=== PATIENT | female | born 1965 | race Caucasian/White ===

== ENCOUNTER 2020-07-08 14:40 | Observation (INO) | payer OTHER ==
[2020-07-08] MEDS ORDERED: NALOXONE 0.4 MG/ML 1 ML VIAL IVP STA ×2 (15:21→17:53)
[2020-07-08] MEDS ORDERED: SODIUM CHLORIDE 0.9% 1,000 ML IV STA (15:23)
[2020-07-08 15:49] LABS: Basophils % (A) 0 %; Eosinophils # (A) 0.5 k/uL (0-0.7); Eosinophils % (A) 8 %; HCT 44.2 % (34.0-46.0); HGB 14.7 gm/dL (11.4-16.0); Lymphocytes % (A) 15 %; MCH 32.1 pg (25.0-35.0); MCHC 33.3 g/dL (31.0-37.0); MCV 96.2 fL (80.0-100.0); Mean Platelet Volume 7.6; Monocytes # (A) 0.3 k/uL (0-1.0); Monocytes % (A) 5 %; Neutrophils # (A) 4.9 k/uL (1.3-7.7); Neutrophils % (A) 71 %; Platelet Count 246 k/uL (150-450); RBC 4.59 m/uL (3.80-5.40); RDW 12.6 % (11.5-15.5); WBC 6.9 k/uL (3.8-10.6)
[2020-07-08 15:49] LABS: Glucose,Whole Blood 87 mg/dL (75-99)
[2020-07-08 16:05] LABS: ALT 11 U/L (4-34); AST 22 U/L (14-36); Acetaminophen <10.0 ug/mL; African American GFR (CKD) >90 (>60 ml/min/1.73 sqM); Albumin 4.1 g/dL (3.5-5.0); Alkaline Phosphatase 85 U/L (38-126); Anion Gap 5 mmol/L; Blood Urea Nitrogen 14 mg/dL (7-17); Calcium 9.3 mg/dL (8.4-10.2); Carbon Dioxide 27 mmol/L (22-30); Chloride 106 mmol/L (98-107); Glucose 92 mg/dL (74-99); Non-African American GFR(CKD) 84 (>60 ml/min/1.73 sqM); Potassium 4.1 mmol/L (3.5-5.1); Salicylate <1.0 mg/dL; Sodium 138 mmol/L (137-145); Total Bilirubin 0.6 mg/dL (0.2-1.3); Total Protein 6.6 g/dL (6.3-8.2)
--- NOTE | 2020-07-08 16:24 | ED ---
Altered Mental Status HPI - General Chief Complaint: Altered Mental Status Stated Complaint: Overdose Time Seen by Provider: 07/08/20 15:15 Source: EMS Limitations: altered mental status - History of Present Illness Initial Comments: Patient is a 54-year-old female presenting to the emergency Department with complaints of feeling exhausted. Patient was sent from the [place] for altered mental status and lethargy. Patient states she simply extremity tired as she has not slept in a few days. She denies any drug use today or alcohol. She denies any pain anywhere. She denies any suicidal thoughts. She denies any falls or trauma. She denies chest pain or shortness of breath, cough, fever, chills, urinary complaints. She has no further complaints at this time. On arrival to the ER, her vital signs are stable. - Related Data Home Medications Medication Instructions Recorded Confirmed DULoxetine HCL [Cymbalta] 60 mg PO DAILY 07/08/20 07/08/20 SUMAtriptan succinate [Sumatriptan 100 mg PO DAILY PRN 07/08/20 07/08/20 Succinate] busPIRone HCl [Buspar] 5 mg PO BID 07/08/20 07/08/20 Allergies Allergy/AdvReac Type Severity Reaction Status Date / Time No Known Allergies Allergy Verified 07/08/20 18:30 Review of Systems ROS Statement: Those systems with pertinent positive or pertinent negative responses have been documented in the HPI. ROS Other: All systems not noted in ROS Statement are negative. Past Medical History Smoking Status: Current every day smoker Past Alcohol Use History: Abuse Past Drug Use History: Heroin, Methamphetamine General Exam - General Exam Comments Initial Comments: GENERAL: Patient is lethargic but will answer after using her name a few times. Patient is nontoxic and in no acute distress. HEAD: Atraumatic, normocephalic. EYES: Pupils equal round and reactive to light, extraocular movements intact, sclera anicteric, conjunctiva are normal. Eyelids were unremarkable. ENT: TMs normal, nares patent, oropharynx clear without exudates. Moist mucous membranes. NECK: Normal range of motion, supple without lymphadenopathy or JVD. LUNGS: Unlabored respirations. Breath sounds clear to auscultation bilaterally and equal. No wheezes rales or rhonchi. HEART: Regular rate and rhythm without murmurs, rubs or gallops. ABDOMEN: Soft, nontender, normoactive bowel sounds. No guarding, no rebound. No masses appreciated. : Deferred MUSCULOSKELETAL: Normal extremities with adequate strength and normal range of motion, no pitting or edema. No clubbing or cyanosis. NEUROLOGICAL: Patient is alert and oriented x 3. Motor and sensory are also intact. Cranial nerves II through XII grossly intact. Symmetrical smile. Normal speech, normal gait. PSYCH: Normal mood, normal affect. SKIN: Warm, Dry, normal turgor, no rashes or lesions noted. Limitations: altered mental status Course Vital Signs 07/08/20 07/08/20 07/08/20 14:48 15:30 15:34 Temperature 98.6 F Pulse Rate 82 70 Respiratory 14 18 12 Rate Blood Pressure 140/90 158/89 O2 Sat by Pulse 99 99 Oximetry 07/08/20 07/08/20 07/08/20 17:30 18:00 18:20 Temperature 98.2 F Pulse Rate 67 71 Respiratory 18 20 16 Rate Blood Pressure 138/89 141/81 O2 Sat by Pulse 99 99 Oximetry Medical Decision Making - Medical Decision Making Patient was sent to [place] for increased lethargy, altered mental status. She denies taking any drugs or alcohol today. She does admit to taking drugs last night. She states she simply tired. She denies any pain. Her exam is unremarkable. She has been sleeping in the room, will not get up to use the restroom or walk around. Her EKG shows no acute abnormalities. Patient's glucose was normal. Lab work is unremarkable, ammonia, Tylenol, alcohol,salicylates, are all normal. Patient was given 1 dose of Narcan without improvement in symptoms. Patient will not get up and walk, falls alseep while speaking. Patient will be admitted for lethargy. She was accepted by Dr. Redman. Case discussed with Dr. Krishna. - Lab Data Result diagrams: 07/08/20 15:39 07/08/20 15:39 Lab Results 07/08/20 07/08/20 07/08/20 Range/Units 15:39 15:39 15:39 WBC 6.9 (3.8-10.6) k/uL RBC 4.59 (3.80-5.40) m/uL Hgb 14.7 (11.4-16.0) gm/dL Hct 44.2 (34.0-46.0) % MCV 96.2 (80.0-100.0) fL MCH 32.1 (25.0-35.0) pg MCHC 33.3 (31.0-37.0) g/dL RDW 12.6 (11.5-15.5) % Plt Count 246 (150-450) k/uL Neutrophils % 71 % Lymphocytes % 15 % Monocytes % 5 % Eosinophils % 8 % Basophils % 0 % Neutrophils # 4.9 (1.3-7.7) k/uL Lymphocytes # 1.0 (1.0-4.8) k/uL Monocytes # 0.3 (0-1.0) k/uL Eosinophils # 0.5 (0-0.7) k/uL Basophils # 0.0 (0-0.2) k/uL Sodium 138 (137-145) mmol/L Potassium 4.1 (3.5-5.1) mmol/L Chloride 106 (98-107) mmol/L Carbon Dioxide 27 (22-30) mmol/L Anion Gap 5 mmol/L BUN 14 (7-17) mg/dL Creatinine 0.81 (0.52-1.04) mg/dL Est GFR (CKD-EPI)AfAm >90 (>60 ml/min/1.73 sqM) Est GFR (CKD-EPI)NonAf 84 (>60 ml/min/1.73 sqM) Glucose 92 (74-99) mg/dL POC Glucose (mg/dL) (75-99) mg/dL POC Glu Rehabilitation Inspector ID Plasma Lactic Acid David 1.2 (0.7-2.0) mmol/L Calcium 9.3 (8.4-10.2) mg/dL Total Bilirubin 0.6 (0.2-1.3) mg/dL AST 22 (14-36) U/L ALT 11 (4-34) U/L Alkaline Phosphatase 85 (38-126) U/L Ammonia (<30) umol/L Total Protein 6.6 (6.3-8.2) g/dL Albumin 4.1 (3.5-5.0) g/dL Salicylates <1.0 mg/dL Acetaminophen <10.0 ug/mL Serum Alcohol mg/dL 07/08/20 07/08/20 07/08/20 Range/Units 15:39 15:48 16:19 WBC (3.8-10.6) k/uL RBC (3.80-5.40) m/uL Hgb (11.4-16.0) gm/dL Hct (34.0-46.0) % MCV (80.0-100.0) fL MCH (25.0-35.0) pg MCHC (31.0-37.0) g/dL RDW (11.5-15.5) % Plt Count (150-450) k/uL Neutrophils % % Lymphocytes % % Monocytes % % Eosinophils % % Basophils % % Neutrophils # (1.3-7.7) k/uL Lymphocytes # (1.0-4.8) k/uL Monocytes # (0-1.0) k/uL Eosinophils # (0-0.7) k/uL Basophils # (0-0.2) k/uL Sodium (137-145) mmol/L Potassium (3.5-5.1) mmol/L Chloride (98-107) mmol/L Carbon Dioxide (22-30) mmol/L Anion Gap mmol/L BUN (7-17) mg/dL Creatinine (0.52-1.04) mg/dL Est GFR (CKD-EPI)AfAm (>60 ml/min/1.73 sqM) Est GFR (CKD-EPI)NonAf (>60 ml/min/1.73 sqM) Glucose (74-99) mg/dL POC Glucose (mg/dL) 87 (75-99) mg/dL POC Glu Rehabilitation Inspector ID Plasma Lactic Acid David (0.7-2.0) mmol/L Calcium (8.4-10.2) mg/dL Total Bilirubin (0.2-1.3) mg/dL AST (14-36) U/L ALT (4-34) U/L Alkaline Phosphatase (38-126) U/L Ammonia <9 (<30) umol/L Total Protein (6.3-8.2) g/dL Albumin (3.5-5.0) g/dL Salicylates mg/dL Acetaminophen ug/mL Serum Alcohol <10 mg/dL - EKG Data EKG Comments: Normal sinus rhythm, normal ECG, ventricular rate 69, MT interval 112, QT 410. Disposition Clinical Impression: Lethargic, Withdrawal from recreational drug Disposition: ADMITTED IP TO THIS [facility] Condition: Stable Decision Date: 07/08/20 Decision Time: 18:11
[2020-07-08] MEDS ORDERED: ACETAMINOPHEN TAB 325 MG TAB PO PRN (18:04)
[2020-07-08] MEDS ORDERED: ONDANSETRON 4 MG/2 ML VIAL IVP PRN (18:04)
[2020-07-08] MEDS ORDERED: NALOXONE 0.4 MG/ML 1 ML VIAL IV PRN (18:04)
[2020-07-08] MEDS ORDERED: SODIUM CHLORIDE 0.9% 1,000 ML IV SCH (18:15)
[2020-07-08 20:08] LABS: Appearance,Urine Clear (Clear); Bacteria,Urine Occasional /hpf; Bilirubin,Urine Negative (Negative); Blood,Urine Trace (Negative); Color,Urine Yellow; Glucose,Urine (UA) Negative (Negative); Ketones,Urine Negative (Negative); Leukocyte Esterase,Urine Small (Negative); Mucus,Urine Rare /hpf; Nitrite,Urine Positive (Negative); PH, Urine 5.5 (5.0-8.0); Protein,Urine Negative (Negative); RBC,Urine 1 /hpf (0-5); Specific Gravity,Urine 1.015 (1.001-1.035); Squamous Epithelial Cell,Urine 1 /hpf (0-4); Urobilinogen,Urine <2.0 mg/dL (<2.0); WBC,Urine 12 /hpf (0-5)
[2020-07-08 20:15] LABS: Amphetamine Screen,Urine Detected (NotDetected); Barbiturate Screen,Urine Not Detected (NotDetected); Benzodiazepines Screen,Urine Detected (NotDetected); Cocaine Screen,Urine Detected (NotDetected); Methadone Screen, Urine Not Detected (NotDetected); Opiate Screen,Urine Not Detected (NotDetected); Oxycodone Screen, Urine Not Detected (NotDetected); Phencyclidine Screen,Urine Not Detected (NotDetected); Tricyclic Antidepressant,Urine Not Detected (NotDetected); Urn Cannabinoid Scrn Not Detected (NotDetected)
[2020-07-08] MEDS ORDERED: LORazepam 2 MG/ML INJ IV PRN ×3 (21:03)
[2020-07-08] MEDS ORDERED: THIAMINE 100 MG/ML 2 ML VIAL IM STA (21:03)
--- NOTE | 2020-07-08 21:04 | P.HPIM ---
History of Present Illness H&P Date: 07/08/20 The patient is a 54-year-old female with a PMH of tobacco abuse, EtOH abuse, and polysubstance abuse (heroin, cocaine, methamphetamines) who was sent into the emergency room from [place] for lethargy and altered mentation. The patient was lethargic during the interview though was arousable and was answering questions appropriately. She reported smoking methamphetamine yesterday and drinking a fifth of rum daily for the past several years with her last drink also been yesterday. She reported that she has been feeling exhausted all day today but denied any active complaints. Reported a mild frontal headache though denied falls. Denied chest pain, shortness of breath, fever, chills, dysuria, nausea, vomiting, or abdominal pain. The patient kept on falling asleep during the interview and refused to answer any further questions. Urine toxicology was positive for methamphetamines and cocaine. Alcohol level was less than 10. Lactic acid was 1.2, AST 22, ALT 11, sodium 138, potassium 4.1, BUN 14, creatinine 0.81. Review of Systems Pertinent positives and negatives as discussed in HPI, a complete review of systems was performed and all other systems are negative. Past Medical History Additional Past Medical History / Comment(s): patient too lethargic to answer past medical history questions History of Any Multi-Drug Resistant Organisms: None Reported Smoking Status: Current every day smoker Past Alcohol Use History: Abuse Past Drug Use History: Heroin, Methamphetamine Medications and Allergies Home Medications Medication Instructions Recorded Confirmed Type DULoxetine HCL [Cymbalta] 60 mg PO DAILY 07/08/20 07/08/20 History SUMAtriptan succinate [Sumatriptan 100 mg PO DAILY PRN 07/08/20 07/08/20 History Succinate] busPIRone HCl [Buspar] 5 mg PO BID 07/08/20 07/08/20 History Allergies Allergy/AdvReac Type Severity Reaction Status Date / Time No Known Allergies Allergy Verified 07/08/20 18:30 Physical Exam Vitals: Vital Signs Temp Pulse Pulse Resp BP BP Pulse Ox 07/08/20 19:00 98.3 F 88 18 128/65 99 07/08/20 18:52 98.4 F 70 16 121/77 99 07/08/20 18:20 16 07/08/20 18:00 71 20 141/81 99 07/08/20 17:30 98.2 F 67 18 138/89 99 07/08/20 15:34 12 07/08/20 15:30 70 18 158/89 99 07/08/20 14:48 98.6 F 82 14 140/90 99 Intake and Output 07/08/20 07/08/20 07/08/20 06:59 14:59 22:59 Output Total 600 Balance -600 Output: Urine 600 Other: Weight 72.575 kg 72.575 kg General: non toxic, no distress, appears at stated age, normal weight Derm: no unusual rashes/lesions no unusual ecchymoses, warm, dry Head: atraumatic, normocephalic, symmetric Eyes: EOMI, no lid lag, anicteric sclera, pupils equal round reactive to light ENT: Nose and ears atraumatic, no thrush, no pharyngeal erythema Neck: No thyromegaly, no cervical lymphadenopathy, trachea midline, supple Mouth: no lip lesion, mucus membranes moist Cardiovascular: S1S2 reg, no murmur, positive posterior tibial pulse bilateral, no edema, capillary refill less than 2 seconds Lungs: CTA bilateral, no rhonchi, no rales , no accessory muscle use Abdominal: soft, nontender to palpation, no guarding, no appreciable organomegaly, normal bowel sounds Ext: no gross muscle atrophy, muscle strength 5 out of 5 in all 4 extremities grossly, no contractures, Neuro: Lethargic, CN II-XI grossly intact, light touch intact all 4 extremities, finger to nose within normal limits, Psych: Slow to respond but oriented to self, place, and year/month Results CBC & Chem 7: 07/08/20 15:39 07/08/20 15:39 Thrombosis Risk Factor Assmnt - Choose All That Apply Each Factor Represents 1 point: Age 41-60 years Thrombosis Risk Factor Assessment Total Risk Factor Score: 1 Thrombosis Risk Factor Assessment Level: Low Risk Assessment and Plan Plan: Lethargy, likely methamphetamine/cocaine withdrawal -Continue with neuro checks every hour -Fall precautions -Follow-up brain CT -Patient received 2 doses of Narcan in the emergency room with minimal improvement EtOH abuse -Monitor for signs of withdrawal -CIWA protocol -Fall, aspiration, seizure precautions -Thiamine, folate, multivitamins Tobacco abuse -Advised on the importance of cessation DVT prophylaxis -Heparin subq The patient is admitted with an anticipated less than 2 midnight stay for evaluation of lethargy CODE STATUS: Full Code Discussed with: Patient Anticipated discharge date: 07/[address]: [place] A total of 40 minutes was spent on the care of this complex patient more than 50% of the time was spent in counseling and care coordination.
[2020-07-08] MEDS: THIAMINE 100 MG TAB PO SCH (21:31)
--- NOTE | 2020-07-08 22:00 | CT ---
EXAMINATION: CT brain wo con DATE AND TIME: 07/08/2020 8:12 PM CLINICAL INDICATION: PHH; AMS TECHNIQUE: Standard departmental protocol.; 1217.4 mGy-cm. COMPARISON: None. FINDINGS: The calvarium is intact. There is no intracranial hemorrhage. There is no intracranial mass or mass effect. No definite new intra-axial or extra-axial attenuation defect. The paranasal sinuses, middle ear cavities, and mastoid sinus air cells are clear. The orbits are unremarkable. IMPRESSION: NO ACUTE PROCESS.
[2020-07-08] MEDS: HEPARIN SODIUM,PORCINE 5,000 UNIT/ML 1 ML VIAL SQ SCH (23:33)
[2020-07-09] MEDS: THIAMINE 100 MG TAB PO SCH (08:33)
[2020-07-09] MEDS: HEPARIN SODIUM,PORCINE 5,000 UNIT/ML 1 ML VIAL SQ SCH (08:33)
[2020-07-09] MEDS ORDERED: FOLIC ACID 1 MG TAB PO SCH (09:00)
[2020-07-09] MEDS ORDERED: MULTIVITAMINS, THERA 1 EACH TAB PO SCH (09:00)
[2020-07-09 09:31] VITALS: BP 158/85; PULSE 90; RESP 15; TEMP 98.4
--- NOTE | 2020-07-09 10:35 | P.DS ---
Providers Date of admission: 07/08/20 18:04 Expected date of discharge: 07/09/20 Attending physician: Berta Redman DO Primary care physician: Physician Nonstaff Hospital Course: The patient is a 54-year-old female with a PMH of tobacco abuse, EtOH abuse, and polysubstance abuse (heroin, cocaine, methamphetamines) who was sent into the emergency room from [place] for lethargy and altered mentation. She reported smoking methamphetamine yesterday and drinking a fifth of rum daily for the past several years with her last drink also been yesterday. Patient was evaluated in the ER and a computed tomography scan of the head sh owed no acute intracranial process. Most of her lab work was within acceptable range. She was placed on observation and treated aggressively with IV fluid hydration. She did not have any evidence of withdrawal. On the day of my evaluation, patient was awake and alert and her mentation was normal. She will be discharged in a stable condition. She will return to [place] for further management of her substance abuse. For further details about this hospitalization please refer to the electronic chart. Patient Condition at Discharge: Stable Plan - Discharge Summary Discharge Rx Participant: No New Discharge Prescriptions: No Action busPIRone HCl [Buspar] 5 mg PO BID SUMAtriptan succinate [Sumatriptan Succinate] 100 mg PO DAILY PRN PRN Reason: Migraine Headache DULoxetine HCL [Cymbalta] 60 mg PO DAILY Discharge Medication List DULoxetine HCL [Cymbalta] 60 mg PO DAILY 07/08/20 [History] SUMAtriptan succinate [Sumatriptan Succinate] 100 mg PO DAILY PRN 07/08/20 [History] busPIRone HCl [Buspar] 5 mg PO BID 07/08/20 [History] Follow up Appointment(s)/Referral(s): Nonstaff,Physician [Primary Care Provider] - 1-2 days
== END 2020-07-09 14:36 | disposition other institution (70) ==
LOC: EC 14:40 → 4SSUR 18:04
PROVIDERS: ADMIT Internal Medicine; ATTEND Internal Medicine
DX: R41.82 Altered mental status, unspecified (principal); R53.83 Other fatigue; F10.10 Alcohol abuse, uncomplicated; F14.10 Cocaine abuse, uncomplicated; F17.200 Nicotine dependence, unspecified, uncomplicated; Z79.899 Other long term (current) drug therapy
CPT/HCPCS: 96372 ×2; 96376; 96361; 96374; 99285; 36415; 93005; 80053; 82140; 83605; 85025; 81001; 80306; 83520; 80329; 80320; 87086; 87077; 87186; 70450; G0378 ×2; J1644; J2310; J3411

== ENCOUNTER 2020-09-07 09:53 | Emergency (ER) | payer OTHER ==
[2020-09-07] MEDS ORDERED: methylPREDNISolone SOD SUCCI 125 MG/2 ML VIAL IV STA (09:58)
[2020-09-07] MEDS ORDERED: SODIUM CHLORIDE 0.9% 1,000 ML IV STA ×2 (09:58→10:52)
[2020-09-07] MEDS ORDERED: IPRATROPIUM-ALBUTEROL 3 ML NEB INHALATION STA (09:58)
[2020-09-07 10:01] VITALS: RESP 19; TEMP 97.7
--- NOTE | 2020-09-07 10:02 | ED ---
SOB HPI - General Stated Complaint: SOB Time Seen by Provider: 09/07/20 09:53 Source: patient, EMS Mode of arrival: EMS - History of Present Illness Initial Comments: this is a 54-year-old female who states she just quit smoking several days ago who woke up this morning with some shortness of breath and a cough with phlegm production she states the thumb was somewhat black colored. She is having diffi culty clearing it. She complains of shortness of breath she was brought in from a outpatient clinic by EMS due to the shortness of breath he was also noted to be breathing 40 times a minute and suffering from numbness to her hands bilaterally present.she was satting at about 100%. She has had some slight rhinorrhea no other complaints and is fevers chills nausea vomiting sweats. MD Complaint: shortness of breath, cough - Related Data Home Medications Medication Instructions Recorded Confirmed DULoxetine HCL [Cymbalta] 60 mg PO DAILY 07/08/20 09/07/20 Albuterol Sulfate [Proair Hfa] 1 - 2 puff INHALATION RT-QID PRN 09/07/2009/07 Ergocalciferol (Vitamin D2) 50,000 unit PO MO 09/07/20 09/07/20 [Drisdol] Fluticasone/Salmeterol [Advair 1 puff INHALATION RT-BID 09/07/20 09/07/20 100-50 Diskus] Gabapentin [Neurontin] 300 mg PO TID 09/07/20 09/07/20 Montelukast Sodium [Singulair] 10 mg PO HS 09/07/20 09/07/20 Multivitamins, Thera [Multivitamin 1 tab PO DAILY 09/07/20 09/07/20 (formulary)] Naproxen 500 mg PO BID PRN 09/07/20 09/07/20 Varenicline [Chantix Continuing 1 mg PO DAILY 09/07/20 09/07/20 Pack] predniSONE [Deltasone] 40 mg PO DAILY 09/07/20 09/07/20 Allergies Allergy/AdvReac Type Severity Reaction Status Date / Time latex Allergy Anaphylaxis Verified 09/07/20 11:05 acetaminophen [From [place]] AdvReac Nausea & Verified 09/07/20 11:05 Vomiting & Diarrhea codeine AdvReac Nausea & Verified 09/07/20 11:05 [From Tylenol-Codeine #3] Vomiting & Diarrhea hydrocodone [From [place]] AdvReac Nausea & Verified 09/07/20 11:05 Vomiting & Diarrhea Review of Systems ROS Statement: Those systems with pertinent positive or pertinent negative responses have been documented in the HPI. ROS Other: All systems not noted in ROS Statement are negative. Past Medical History Past Medical History: Asthma, Seizure Disorder Additional Past Medical History / Comment(s): patient too lethargic to answer past medical history questions History of Any Multi-Drug Resistant Organisms: None Reported Smoking Status: Current every day smoker Past Alcohol Use History: Abuse Past Drug Use History: Heroin, Methamphetamine General Exam - General Exam Comments Initial Comments: this is a well-developed well-nourished asthenic appearing awake alert oriented 3 female General appearance: alert, anxious Head exam: Present: atraumatic, normocephalic, normal inspection Eye exam: Present: normal appearance, PERRL, EOMI. Absent: scleral icterus, conjunctival injection, periorbital swelling ENT exam: Present: normal exam, mucous membranes moist Neck exam: Present: normal inspection. Absent: tenderness, meningismus, lymphadenopathy Respiratory exam: Present: decreased breath sounds. Absent: respiratory distress, wheezes, rales, rhonchi, stridor Cardiovascular Exam: Present: regular rate, normal rhythm, normal heart sounds. Absent: systolic murmur, diastolic murmur, rubs, gallop, clicks GI/Abdominal exam: Present: soft, normal bowel sounds. Absent: distended, tenderness, guarding, rebound, rigid Extremities exam: Present: normal inspection, full ROM, normal capillary refill. Absent: tenderness, pedal edema, joint swelling, calf tenderness Back exam: Present: normal inspection Neurological exam: Present: alert, oriented X3, CN II-XII intact Psychiatric exam: Present: normal affect, normal mood Skin exam: Present: warm, dry, intact, normal color. Absent: rash Course Vital Signs 09/07/20 09/07/20 09/07/20 09:54 10:29 10:39 Temperature 97.7 F Pulse Rate 77 79 76 Respiratory 19 Rate Blood Pressure 115/78 O2 Sat by Pulse 99 Oximetry Medical Decision Making - Medical Decision Making reevaluation patient finds that she feels much improved. Symptoms the presentation is consistent with an acute bronchospasm as well as dehydration. Patient is encouraged to continue his her smoking cessation increase oral fluids she does have an inhaler as well as oral steroids that she is on right now she is resume his medication as directed follow-up with her doctor return when necessary - Lab Data Result diagrams: 09/07/20 10:09 09/07/20 10:09 Lab Results 09/07/20 09/07/20 09/07/20 Range/Units 10:09 10:09 10:09 WBC 9.0 (3.8-10.6) k/uL RBC 4.44 (3.80-5.40) m/uL Hgb 14.1 (11.4-16.0) gm/dL Hct 43.2 (34.0-46.0) % MCV 97.1 (80.0-100.0) fL MCH 31.7 (25.0-35.0) pg MCHC 32.7 (31.0-37.0) g/dL RDW 12.1 (11.5-15.5) % Plt Count 412 (150-450) k/uL Neutrophils % 65 % Lymphocytes % 23 % Monocytes % 5 % Eosinophils % 4 % Basophils % 1 % Neutrophils # 5.9 (1.3-7.7) k/uL Lymphocytes # 2.1 (1.0-4.8) k/uL Monocytes # 0.4 (0-1.0) k/uL Eosinophils # 0.4 (0-0.7) k/uL Basophils # 0.1 (0-0.2) k/uL PT 10.4 (9.0-12.0) sec INR 1.0 (<1.2) APTT 23.4 (22.0-30.0) sec Sodium 139 (137-145) mmol/L Potassium 4.3 (3.5-5.1) mmol/L Chloride 107 (98-107) mmol/L Carbon Dioxide 26 (22-30) mmol/L Anion Gap 6 mmol/L BUN 27 H (7-17) mg/dL Creatinine 0.74 (0.52-1.04) mg/dL Est GFR (CKD-EPI)AfAm >90 (>60 ml/min/1.73 sqM) Est GFR (CKD-EPI)NonAf >90 (>60 ml/min/1.73 sqM) Glucose 99 (74-99) mg/dL Plasma Lactic Acid David (0.7-2.0) mmol/L Calcium 9.4 (8.4-10.2) mg/dL Magnesium 1.9 (1.6-2.3) mg/dL Total Bilirubin 0.6 (0.2-1.3) mg/dL AST 26 (14-36) U/L ALT 19 (4-34) U/L Alkaline Phosphatase 60 (38-126) U/L Creatine Kinase 159 H (30-135) U/L Troponin I (0.000-0.034) ng/mL NT-Pro-B Natriuret Pep pg/mL Total Protein 7.1 (6.3-8.2) g/dL Albumin 4.3 (3.5-5.0) g/dL 09/07/20 09/07/20 09/07/20 Range/Units 10:09 10:09 10:09 WBC (3.8-10.6) k/uL RBC (3.80-5.40) m/uL Hgb (11.4-16.0) gm/dL Hct (34.0-46.0) % MCV (80.0-100.0) fL MCH (25.0-35.0) pg MCHC (31.0-37.0) g/dL RDW (11.5-15.5) % Plt Count (150-450) k/uL Neutrophils % % Lymphocytes % % Monocytes % % Eosinophils % % Basophils % % Neutrophils # (1.3-7.7) k/uL Lymphocytes # (1.0-4.8) k/uL Monocytes # (0-1.0) k/uL Eosinophils # (0-0.7) k/uL Basophils # (0-0.2) k/uL PT (9.0-12.0) sec INR (<1.2) APTT (22.0-30.0) sec Sodium (137-145) mmol/L Potassium (3.5-5.1) mmol/L Chloride (98-107) mmol/L Carbon Dioxide (22-30) mmol/L Anion Gap mmol/L BUN (7-17) mg/dL Creatinine (0.52-1.04) mg/dL Est GFR (CKD-EPI)AfAm (>60 ml/min/1.73 sqM) Est GFR (CKD-EPI)NonAf (>60 ml/min/1.73 sqM) Glucose (74-99) mg/dL Plasma Lactic Acid David 2.3 H* (0.7-2.0) mmol/L Calcium (8.4-10.2) mg/dL Magnesium (1.6-2.3) mg/dL Total Bilirubin (0.2-1.3) mg/dL AST (14-36) U/L ALT (4-34) U/L Alkaline Phosphatase (38-126) U/L Creatine Kinase (30-135) U/L Troponin I <0.012 (0.000-0.034) ng/mL NT-Pro-B Natriuret Pep 36 pg/mL Total Protein (6.3-8.2) g/dL Albumin (3.5-5.0) g/dL - EKG Data -: EKG Interpreted by Me EKG shows normal: sinus rhythm, axis, intervals, QRS complexes, ST-T waves Rate: normal EKG Comments: Normal sinus rhythm a 77 appear interval 124 QRS duration 78 daily since QTC 410/463 this is a normal-appearing EKG. - Radiology Data Radiology results: report reviewed (I did review the imaging and report no acute findings.), image reviewed Disposition Clinical Impression: Acute bronchospasm, Dehydration Disposition: HOME SELF-CARE Condition: Good Instructions (If sedation given, give patient instructions): Bronchospasm (ED), Dehydration (ED) Is patient prescribed a controlled substance at d/c from ED?: No Referrals: Beti Mc MD [Primary Care Provider] - 1-2 days
[2020-09-07 10:23] LABS: Basophils # (A) 0.1 k/uL (0-0.2); Basophils % (A) 1 %; Eosinophils # (A) 0.4 k/uL (0-0.7); Eosinophils % (A) 4 %; HCT 43.2 % (34.0-46.0); HGB 14.1 gm/dL (11.4-16.0); Lymphocytes # (A) 2.1 k/uL (1.0-4.8); Lymphocytes % (A) 23 %; MCH 31.7 pg (25.0-35.0); MCHC 32.7 g/dL (31.0-37.0); MCV 97.1 fL (80.0-100.0); Mean Platelet Volume 6.6; Monocytes # (A) 0.4 k/uL (0-1.0); Monocytes % (A) 5 %; Neutrophils # (A) 5.9 k/uL (1.3-7.7); Neutrophils % (A) 65 %; Platelet Count 412 k/uL (150-450); RBC 4.44 m/uL (3.80-5.40); RDW 12.1 % (11.5-15.5)
[2020-09-07 10:33] LABS: ALT 19 U/L (4-34); AST 26 U/L (14-36); African American GFR (CKD) >90 (>60 ml/min/1.73 sqM); Albumin 4.3 g/dL (3.5-5.0); Alkaline Phosphatase 60 U/L (38-126); Anion Gap 6 mmol/L; Blood Urea Nitrogen 27 mg/dL (7-17); Calcium 9.4 mg/dL (8.4-10.2); Carbon Dioxide 26 mmol/L (22-30); Chloride 107 mmol/L (98-107); Creatine Kinase 159 U/L (30-135); Glucose 99 mg/dL (74-99); Magnesium 1.9 mg/dL (1.6-2.3); Non-African American GFR(CKD) >90 (>60 ml/min/1.73 sqM); Potassium 4.3 mmol/L (3.5-5.1); Sodium 139 mmol/L (137-145); Total Bilirubin 0.6 mg/dL (0.2-1.3); Total Protein 7.1 g/dL (6.3-8.2)
[2020-09-07 10:34] LABS: Partial Thromboplastin Time 23.4 sec (22.0-30.0); Prothrombin Time 10.4 sec (9.0-12.0)
--- NOTE | 2020-09-07 11:19 | XR ---
EXAMINATION TYPE: XR chest 2V DATE OF EXAM: 09/07/2020 COMPARISON: NONE HISTORY: History of asthma with difficulty in breathing. TECHNIQUE: Frontal and lateral views of the chest are obtained. FINDINGS: There is mild chronic parenchymal change without suspicious focal air space opacity, pleur al effusion, or pneumothorax seen. The cardiac silhouette size is within normal limits. Overlying E KG leads. The osseous structures are intact. IMPRESSION: No acute cardiopulmonary process.
[2020-09-07 12:23] VITALS: BP 105/70; PULSE 89
== END 2020-09-07 12:23 | disposition home or self-care (01) ==
LOC: EC 09:53
DX: J98.01 Acute bronchospasm (principal); E86.0 Dehydration; R20.0 Anesthesia of skin; F17.200 Nicotine dependence, unspecified, uncomplicated; M19.90 Unspecified osteoarthritis, unspecified site; Z79.51 Long term (current) use of inhaled steroids; Z79.899 Other long term (current) drug therapy; Z91.040 Latex allergy status; Z88.5 Allergy status to narcotic agent; Z88.6 Allergy status to analgesic agent; Z87.09 Personal history of other diseases of the respiratory system
CPT/HCPCS: 36415; 94640; 93005; 83880; 80053; 82550; 83605; 83735; 84484; 85025; 85610; 85730; 71046; 99285; 96374; 96361 ×2; J2930

== ENCOUNTER 2020-11-25 09:36 | Day surgery (SDC) | payer OTHER ==
[2020-11-22 15:46] VITALS: BMI 23.1
[~2020-11-25 09:36] MED LIST: LACTATED RINGERS 1,000 ML IV SCH; LIDOCAINE 1% (10MG/ML) FOR IV START INTRADERMA PRN
[2020-11-25 10:15] VITALS: TEMP 98.4
[2020-11-25] MEDS ORDERED: PROPOFOL 10 MG/ML 20 ML VIAL IV ONE (11:08)
[2020-11-25] MEDS ORDERED: LIDOCAINE 1% INJ 10MG/ML (20 ML MDV) ONE (11:08)
--- NOTE | 2020-11-25 11:11 | P.GSHP ---
History of Present Illness H&P Date: 11/25/20 Chief Complaint: Family history colonic Cancer This 55-year-old female been safe for colonoscopy. Patient previous history of colon polyps. She also has a strong family history of colon cancer. Her last colonoscopy was 7 years ago. 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 Smoking Status: Former smoker - Past Family History Mother Additional Family Medical History / Comment(s): colon polyps-precancerous Medications and Allergies Home Medications Medication Instructions Recorded Confirmed Type DULoxetine HCL [Cymbalta] 60 mg PO QAM 07/08/20 11/22/20 History Albuterol Sulfate [Proair Hfa] 1 - 2 puff INHALATION RT-QID PRN 09/07/20 11/22/20 History Fluticasone/Salmeterol [Advair 1 puff INHALATION RT-BID 09/07/20 11/22/20 History 100-50 Diskus] Gabapentin [Neurontin] 300 mg PO TID 09/07/20 11/25/20 History Montelukast Sodium [Singulair] 10 mg PO HS 09/07/20 11/22/20 History Naproxen 500 mg PO BID PRN 09/07/20 11/22/20 History Varenicline [Chantix Continuing 1 mg PO Q2D 09/07/20 11/22/20 History Pack] Antibiotic For Uti 1 dose PO BID 11/22/20 11/22/20 History Ergocalciferol [Vitamin D2] 50,000 unit PO Q7D 11/22/20 11/22/20 History Vivitrol 1 dose IM Q30D 11/22/20 11/22/20 History Allergies Allergy/AdvReac Type Severity Reaction Status Date / Time latex Allergy Anaphylaxis Verified 11/25/20 10:03 codeine AdvReac Nausea & Verified 11/25/20 10:03 [From Tylenol-Codeine #3] Vomiting & Diarrhea hydrocodone [From [place]] AdvReac Nausea & Verified 11/25/20 10:03 Vomiting & Diarrhea Surgical - Exam Vital Signs Temp Pulse Resp BP Pulse Ox 98.4 F 71 16 124/79 97 11/25/20 10:11 11/25/20 10:11 11/25/20 10:11 11/25/20 10:11 11/25/20 10:11 - General well developed, well nourished, no distress - Eyes PERRL - ENT normal pinna - Neck no masses - Respiratory normal expansion - Cardiovascular Rhythm: regular - Abdomen Abdomen: soft, non tender Assessment and Plan Assessment: Family History of colon cancer. History of colonic polyps. Perform colonoscopy
--- NOTE | 2020-11-25 11:38 | P.OP ---
Date of Procedure: 11/25/20 Preoperative Diagnosis: History of colon polyps Family history colonic Cancer Postoperative Diagnosis: Sigmoid colon polyp Procedure(s) Performed: Colonoscopy Anesthesia: MAC Surgeon: Claudio Artis Pathology: other (Sigmoid colon) Condition: stable Disposition: PACU Description of Procedure: The patient's placed on the endoscopy table in the lateral position. She received IV sedation. Digital rectal exam was performed which revealed no abnormalities. Flexible colonoscope was then placed patient anus passed rotator colon. The ileocecal valve was excised. The cecum, ascending and transverse colon. No. The descending colon. In the sigmoid colon there was a small sessile polyp removed with cold forcep. Scope was brought back the rectum this appeared normal. Scope withdrawn for patient.
[2020-11-25 12:06] VITALS: BP 110/78; PULSE 78; RESP 18
== END 2020-11-25 12:12 | disposition home or self-care (01) ==
LOC: ORWHC2ENDO 09:36
PROVIDERS: ATTEND Surgery
DX: Z12.11 Encounter for screening for malignant neoplasm of colon (principal); K63.5 Polyp of colon; Z86.010 Personal history of colon polyps; Z80.0 Family history of malignant neoplasm of digestive organs; G40.909 Epilepsy, unspecified, not intractable, without status epilepticus; J45.909 Unspecified asthma, uncomplicated; Z90.89 Acquired absence of other organs; Z87.891 Personal history of nicotine dependence; Z79.51 Long term (current) use of inhaled steroids; Z79.899 Other long term (current) drug therapy; Z91.040 Latex allergy status; Z88.5 Allergy status to narcotic agent
CPT/HCPCS: 88305; 45380; J2001; J2704

== ENCOUNTER 2020-11-26 11:32 | Emergency (ER) | payer OTHER ==
[2020-11-26 11:48] VITALS: BP 130/80; PULSE 92; RESP 20; TEMP 98.3
--- NOTE | 2020-11-26 11:49 | ED ---
Skin/Abscess/FB HPI - General Chief complaint: Skin/Abscess/Foreign Body Stated complaint: metal in finger/possible infection Time Seen by Provider: 11/26/20 11:48 Source: patient Mode of arrival: ambulatory Limitations: no limitations - History of Present Illness Initial comments: 55-year-old female presenting to the emergency department with chief complaint of a metal stuck in the finger. Patient states she was pumping her car tire when a small piece of metallic material went into her hand that was coming from the air pump. Patient states she's had no issues with that until about 2 days ago when she began to develop some redness and swelling to the left fourth digit. Patient states that she did remove the metallic material, however a small PEs might have broken off inside. Tetanus is not up-to-date. She denies any fevers or chills - Related Data Home Medications Medication Instructions Recorded Confirmed DULoxetine HCL [Cymbalta] 60 mg PO QAM 07/08/20 11/22/20 Albuterol Sulfate [Proair Hfa] 1 - 2 puff INHALATION RT-QID PRN 09/07/20 11/22/20 Fluticasone/Salmeterol [Advair 1 puff INHALATION RT-BID 09/07/20 11/22/20 100-50 Diskus] Gabapentin [Neurontin] 300 mg PO TID 09/07/20 11/25/20 Montelukast Sodium [Singulair] 10 mg PO HS 09/07/20 11/22/20 Naproxen 500 mg PO BID PRN 09/07/20 11/22/20 Varenicline [Chantix Continuing 1 mg PO Q2D 09/07/20 11/22/20 Pack] Antibiotic For Uti 1 dose PO BID 11/22/20 11/22/20 Ergocalciferol [Vitamin D2] 50,000 unit PO Q7D 11/22/20 11/22/20 Vivitrol 1 dose IM Q30D 11/22/20 11/22/20 Previous Rx's Medication Instructions Recorded Cephalexin [Keflex] 500 mg PO Q6HR #40 cap 11/26/20 Fluconazole [Diflucan] 150 mg PO ONCE #2 tab 11/26/20 Allergies Allergy/AdvReac Type Severity Reaction Status Date / Time latex Allergy Anaphylaxis Verified 11/26/20 11:48 codeine AdvReac Nausea & Verified 11/26/20 11:48 [From Tylenol-Codeine #3] Vomiting & Diarrhea hydrocodone [From [place]] AdvReac Nausea & Verified 11/26/20 11:48 Vomiting & Diarrhea Review of Systems ROS Statement: Those systems with pertinent positive or pertinent negative responses have been documented in the HPI. ROS Other: All systems not noted in ROS Statement are negative. 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, seizures with alcohol withdrawal-tx with ativan June [id number] alcohol since June 2020,hx colon polyps,hypoglycemia,low vitamin d History of Any Multi-Drug Resistant Organisms: None Reported Past Surgical History: Adenoidectomy, Tonsillectomy Past Anesthesia/Blood Transfusion Reactions: Family History of Problems w/ Anesthesia Additional Past Anesthesia/Blood Transfusion Reaction / Comment(s): dtr has trac hea malacia and PONV Past Psychological History: No Psychological Hx Reported Smoking Status: Former smoker Past Alcohol Use History: None Reported Past Drug Use History: None Reported - Past Family History Mother Additional Family Medical History / Comment(s): colon polyps-precancerous General Exam Limitations: no limitations General appearance: alert, in no apparent distress Head exam: Present: atraumatic, normocephalic, normal inspection Eye exam: Present: normal appearance, PERRL, EOMI Pupils: Present: normal accommodation ENT exam: Present: normal exam, normal oropharynx, mucous membranes moist Neck exam: Present: normal inspection, full ROM Respiratory exam: Present: normal lung sounds bilaterally. Absent: respiratory distress, wheezes, rales Cardiovascular Exam: Present: regular rate, normal rhythm, normal heart sounds Extremities exam: Present: full ROM, tenderness, normal capillary refill, other (+2 ulnar and radial pulses bilaterally.). Absent: normal inspection (Swelling, erythema noted on the middle phalange of the left fourth digit.), pedal edema, joint swelling, calf tenderness Back exam: Present: normal inspection, full ROM. Absent: tenderness, CVA tenderness (R), CVA tenderness (L) Neurological exam: Present: alert, oriented X3, normal gait Psychiatric exam: Present: normal affect, normal mood Skin exam: Present: warm, dry, intact, normal color Course Vital Signs 11/26/20 11:45 Temperature 98.3 F Pulse Rate 92 Respiratory 20 Rate Blood Pressure 130/80 O2 Sat by Pulse 98 Oximetry Medical Decision Making - Medical Decision Making 55-year-old male presenting to the emergency department with the chief complaint of a finger injury. On physical examination, patient has tenderness to the middle phalanges of the left fourth digit. There is also mild erythema and swelling to the region. X-ray reveals no retained metallic foreign body. There is a vague 1.5 cm density in the left dorsal soft tissues beyond the knuckles. This does not correlate clinically. Likely an artifact. This is not the area of interest. She'll be started on Keflex. Tetanus was updated. Return parameters discussed. Tylenol or Motrin for pain. Case discussed with physician. Disposition Clinical Impression: Finger infection Disposition: HOME SELF-CARE Condition: Stable Instructions (If sedation given, give patient instructions): Cellulitis (DC) Additional Instructions: Take prescribed medication as directed. Follow-up with a primary care physician. Return to emergency department if symptoms worsen. Prescriptions: Fluconazole [Diflucan] 150 mg PO ONCE #2 tab Cephalexin [Keflex] 500 mg PO Q6HR #40 cap Is patient prescribed a controlled substance at d/c from ED?: No Referrals: Beti Mc MD [Primary Care Provider] - 1-2 days Time of Disposition: 12:49
[2020-11-26] MEDS ORDERED: DIPH,PERTUS(ACELL)TETVAC-LF 0.5 ML VIAL IM ONE (12:12)
--- NOTE | 2020-11-26 12:20 | XR ---
EXAMINATION TYPE: XR finger LT, 3 views Ring finger DATE OF EXAM: 11/26/2020 Comparison: None Clinical History: 55-year-old female with pain, 4th digit. Suspected metal foreign body Findings: Images: Down onto the fourth digit show nuclear fracture, subluxation, dislocation. No retained metal lic metal density is seen. There is a vague 1.5 mm density dorsally and proximally only on the latera l view that could represent artifact. Impression: No acute osseous abnormality seen. No retained metallic foreign body. There is a vague 1.5 cm density in the dorsal soft tissues just beyond the knuckles only seen on the lateral view that could represe nt artifact. Correlate as to if this corresponds to the area of concern.
[2020-11-26] MEDS ORDERED: SULFAMETHOX-TMP 800-160MG 1 EACH TAB PO STA (12:43)
[2020-11-26] MEDS ORDERED: CEPHALEXIN 500 MG CAP PO STA (12:49)
== END 2020-11-26 12:55 | disposition home or self-care (01) ==
LOC: EC 11:32
DX: L08.9 Local infection of the skin and subcutaneous tissue, unspecified (principal); J45.909 Unspecified asthma, uncomplicated; G40.909 Epilepsy, unspecified, not intractable, without status epilepticus; Z79.51 Long term (current) use of inhaled steroids; Z23 Encounter for immunization; Z79.899 Other long term (current) drug therapy; Z88.5 Allergy status to narcotic agent; Z91.040 Latex allergy status; Z87.891 Personal history of nicotine dependence; Z90.49 Acquired absence of other specified parts of digestive tract; W45.8XXA Other foreign body or object entering through skin, initial encounter; Y93.89 Activity, other specified
CPT/HCPCS: 90471; 90715; 99283

== ENCOUNTER 2020-11-28 07:23 | Emergency (ER) | payer OTHER ==
[2020-11-28] MEDS ORDERED: LIDOCAINE 1% INJ 10MG/ML (20 ML MDV) SQ ONE (07:40)
[2020-11-28] MEDS ORDERED: HYDROmorphone 0.5 MG/0.5 ML SYRINGE IVP STA (07:41)
[2020-11-28] MEDS ORDERED: SODIUM CHLORIDE 0.9% 1,000 ML IV ONE ×2 (07:41→08:23)
[2020-11-28 07:58] LABS: Basophils # (A) 0.1 k/uL (0-0.2); Basophils % (A) 2 %; Eosinophils # (A) 0.4 k/uL (0-0.7); Eosinophils % (A) 8 %; HCT 37.1 % (34.0-46.0); HGB 12.7 gm/dL (11.4-16.0); Lymphocytes # (A) 0.9 k/uL (1.0-4.8); Lymphocytes % (A) 17 %; MCH 31.2 pg (25.0-35.0); MCHC 34.2 g/dL (31.0-37.0); MCV 91.4 fL (80.0-100.0); Mean Platelet Volume 6.8; Monocytes # (A) 0.3 k/uL (0-1.0); Monocytes % (A) 6 %; Neutrophils # (A) 3.5 k/uL (1.3-7.7); Neutrophils % (A) 66 %; Platelet Count 277 k/uL (150-450); RBC 4.05 m/uL (3.80-5.40); RDW 12.3 % (11.5-15.5); WBC 5.3 k/uL (3.8-10.6)
[2020-11-28 08:09] LABS: ALT 14 U/L (4-34); AST 17 U/L (14-36); African American GFR (CKD) >90 (>60 ml/min/1.73 sqM); Alkaline Phosphatase 62 U/L (38-126); Anion Gap 9 mmol/L; Blood Urea Nitrogen 21 mg/dL (7-17); Calcium 8.8 mg/dL (8.4-10.2); Carbon Dioxide 26 mmol/L (22-30); Chloride 105 mmol/L (98-107); Glucose 192 mg/dL (74-99); Non-African American GFR(CKD) >90 (>60 ml/min/1.73 sqM); Potassium 3.9 mmol/L (3.5-5.1); Sodium 140 mmol/L (137-145); Total Bilirubin 0.5 mg/dL (0.2-1.3); Total Protein 6.7 g/dL (6.3-8.2)
[2020-11-28] MEDS ORDERED: SODIUM CHLORIDE 0.9% 500 ML 500 ML IV ONE (08:23)
[2020-11-28] MEDS ORDERED: PIPERACILLIN-TAZOBACTAM 3.375 GM in SODIUM CHLORIDE 0.9% 100 ML IVPB STA (08:23)
[2020-11-28] MEDS ORDERED: CLINDAMYCIN 900 MG in DEXTROSE 5% IN WATER 50 ML IVPB STA ×2 (08:28)
--- NOTE | 2020-11-28 08:39 | ED ---
Skin/Abscess/FB HPI - General Chief complaint: Skin/Abscess/Foreign Body Stated complaint: Revisit - Hand Injury Time Seen by Provider: 11/28/20 07:33 Source: patient Mode of arrival: ambulatory Limitations: no limitations - History of Present Illness Initial comments: 55yo female presenting for cc of left 4th finger presenting for cc of worsenign infection. pt states that she was diagnosed two days ago with a finger infection and was placed on keflex. she states it all started about a week ago when she thought she had gotten a piece of metal in it. the images taken 2 days prior revealed no foreign body. pt states that the redness now streaks to her wrist. patient states she had a fever this AM, she states she called pcp and was told to come to the ER. patient has no additional complaints, she appears well nontoxic in no acute distress. - Related Data Home Medications Medication Instructions Recorded Confirmed DULoxetine HCL [Cymbalta] 60 mg PO DAILY 07/08/20 11/28/20 Albuterol Sulfate [Proair Hfa] 2 puff INHALATION RT-Q6H PRN 09/07/20 11/28/20 Fluticasone/Salmeterol [Advair 2 puff INHALATION RT-BID 09/07/20 11/28/20 100-50 Diskus] Gabapentin [Neurontin] 300 mg PO TID 09/07/20 11/28/20 Montelukast Sodium [Singulair] 10 mg PO HS 09/07/20 11/28/20 Naproxen 500 mg PO BID PRN 09/07/20 11/28/20 Ergocalciferol [Vitamin D2] 50,000 unit PO FR 11/22/20 11/28/20 Acetaminophen Tab [Tylenol Tab] 1,000 mg PO BID PRN 11/28/20 11/28/20 Aspirin EC [Ecotrin Low Dose] 81 mg PO DAILY 11/28/20 11/28/20 Cephalexin [Keflex] 500 mg PO QID 11/28/20 11/28/20 Previous Rx's Medication Instructions Recorded Sulfamethox-Tmp 800-160Mg [Bactrim 1 tab PO Q12HR 10 Days #20 tab 11/28/20 DS 800-160 mg] Allergies Allergy/AdvReac Type Severity Reaction Status Date / Time latex Allergy Anaphylaxis Verified 11/28/20 08:39 codeine AdvReac Nausea & Verified 11/28/20 08:39 [From Tylenol-Codeine #3] Vomiting & Diarrhea hydrocodone [From [place]] AdvReac Nausea & Verified 11/28/20 08:39 Vomiting & Diarrhea Review of Systems ROS Statement: Those systems with pertinent positive or pertinent negative responses have been documented in the HPI. ROS Other: All systems not noted in ROS Statement are negative. 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, seizures with alcohol withdrawal-tx with ativan June [id number] alcohol since June 2020,hx colon polyps,hypoglycemia,low vitamin d History of Any Multi-Drug Resistant Organisms: None Reported Past Surgical History: Adenoidectomy, Tonsillectomy Past Anesthesia/Blood Transfusion Reactions: Family History of Problems w/ Anesthesia Additional Past Anesthesia/Blood Transfusion Reaction / Comment(s): dtr has tra neva malacia and PONV Past Psychological History: No Psychological Hx Reported Smoking Status: Former smoker Past Alcohol Use History: None Reported Past Drug Use History: None Reported - Past Family History Mother Additional Family Medical History / Comment(s): colon polyps-precancerous General Exam - General Exam Comments Initial Comments: General: The patient is awake and alert, in no distress, and does not appear acutely ill. Eye: Pupils are equal, round and reactive to light, extra-ocular movements are intact. No nystagmus. There is normal conjunctiva bilaterally. No signs of icterus. Cardiovascular: There is a regular rate and rhythm. No murmur, rub or gallop is appreciated. Respiratory: Lungs are clear to auscultation, respirations are non-labored, breath sounds are equal. No wheezes, stridor, rales, or rhonchi. Musculoskeletal: Normal ROM, the MCP PIP and DIP joints of the left hand digits, no limitations of effected digit. Strength 5/5. Sensation intact. Radial pulses equal bilaterally 2+. Neurological: A&O x 3. CN II-XII intact grossly, There are no obvious motor or sensory deficits. Coordination appears grossly intact. Speech is normal. Skin: Skin is warm and dry and no rashes. round 1x 1.5cm raised area of fluctuation on flexor aspect distal to PIP joint. no fusiform swelling. Psychiatric: Cooperative, appropriate mood & affect, normal judgment. Limitations: no limitations Course Vital Signs 11/28/20 11/28/20 11/28/20 07:31 08:33 09:00 Temperature 98.6 F Pulse Rate 91 Respiratory 16 18 18 Rate Blood Pressure 105/70 O2 Sat by Pulse 97 Oximetry 11/28/20 10:00 Temperature 98.3 F Pulse Rate 72 Respiratory 18 Rate Blood Pressure 116/76 O2 Sat by Pulse 99 Oximetry Medical Decision Making - Medical Decision Making 55yo presenting for possible worsening finger infectio. xr reviewed from previous day, no foreign body. abscess drainaged after written consent. culture pending. patient given 2 doses of IV abx as well as IVF. patient evlauated by attending and at this time we feel patient is stable for discharge with MRSA added coverage to current abx regime. pt is agreeable to care plan and discharged appearing well. - Lab Data Result diagrams: 11/28/20 07:54 11/28/20 07:54 Lab Results 11/28/20 11/28/20 11/28/20 Range/Units 07:54 07:54 07:54 WBC 5.3 (3.8-10.6) k/uL RBC 4.05 (3.80-5.40) m/uL Hgb 12.7 (11.4-16.0) gm/dL Hct 37.1 (34.0-46.0) % MCV 91.4 (80.0-100.0) fL MCH 31.2 (25.0-35.0) pg MCHC 34.2 (31.0-37.0) g/dL RDW 12.3 (11.5-15.5) % Plt Count 277 (150-450) k/uL MPV 6.8 Neutrophils % 66 % Lymphocytes % 17 % Monocytes % 6 % Eosinophils % 8 % Basophils % 2 % Neutrophils # 3.5 (1.3-7.7) k/uL Lymphocytes # 0.9 L (1.0-4.8) k/uL Monocytes # 0.3 (0-1.0) k/uL Eosinophils # 0.4 (0-0.7) k/uL Basophils # 0.1 (0-0.2) k/uL Sodium 140 (137-145) mmol/L Potassium 3.9 (3.5-5.1) mmol/L Chloride 105 (98-107) mmol/L Carbon Dioxide 26 (22-30) mmol/L Anion Gap 9 mmol/L BUN 21 H (7-17) mg/dL Creatinine 0.68 (0.52-1.04) mg/dL Est GFR (CKD-EPI)AfAm >90 (>60 ml/min/1.73 sqM) Est GFR (CKD-EPI)NonAf >90 (>60 ml/min/1.73 sqM) Glucose 192 H (74-99) mg/dL Lactic Ac Sepsis Rflx Plasma Lactic Acid David 3.0 H* (0.7-2.0) mmol/L Calcium 8.8 (8.4-10.2) mg/dL Total Bilirubin 0.5 (0.2-1.3) mg/dL AST 17 (14-36) U/L ALT 14 (4-34) U/L Alkaline Phosphatase 62 (38-126) U/L Total Protein 6.7 (6.3-8.2) g/dL Albumin 4.0 (3.5-5.0) g/dL 11/28/20 Range/Units 08:14 WBC (3.8-10.6) k/uL RBC (3.80-5.40) m/uL Hgb (11.4-16.0) gm/dL Hct (34.0-46.0) % MCV (80.0-100.0) fL MCH (25.0-35.0) pg MCHC (31.0-37.0) g/dL RDW (11.5-15.5) % Plt Count (150-450) k/uL MPV Neutrophils % % Lymphocytes % % Monocytes % % Eosinophils % % Basophils % % Neutrophils # (1.3-7.7) k/uL Lymphocytes # (1.0-4.8) k/uL Monocytes # (0-1.0) k/uL Eosinophils # (0-0.7) k/uL Basophils # (0-0.2) k/uL Sodium (137-145) mmol/L Potassium (3.5-5.1) mmol/L Chloride (98-107) mmol/L Carbon Dioxide (22-30) mmol/L Anion Gap mmol/L BUN (7-17) mg/dL Creatinine (0.52-1.04) mg/dL Est GFR (CKD-EPI)AfAm (>60 ml/min/1.73 sqM) Est GFR (CKD-EPI)NonAf (>60 ml/min/1.73 sqM) Glucose (74-99) mg/dL Lactic Ac Sepsis Rflx Y Plasma Lactic Acid David (0.7-2.0) mmol/L Calcium (8.4-10.2) mg/dL Total Bilirubin (0.2-1.3) mg/dL AST (14-36) U/L ALT (4-34) U/L Alkaline Phosphatase (38-126) U/L Total Protein (6.3-8.2) g/dL Albumin (3.5-5.0) g/dL Disposition Clinical Impression: Abscess of left ring finger, Lactic acidosis Disposition: HOME SELF-CARE Condition: Good Instructions (If sedation given, give patient instructions): Abscess Incision and Drainage (ED) Additional Instructions: Please use medication as discussed. Please follow-up with family doctor in the next 2 days. Please return to emergency room if the symptoms increase or worsen or for any other concerns. Prescriptions: Sulfamethox-Tmp 800-160Mg [Bactrim DS 800-160 mg] 1 tab PO Q12HR 10 Days #20 tab Is patient prescribed a controlled substance at d/c from ED?: No Referrals: Beti Mc MD [Primary Care Provider] - 1-2 days Time of Disposition: 09:46
[2020-11-28 08:43] VITALS: RESP 18
[2020-11-28 10:09] VITALS: BP 116/76; PULSE 72; TEMP 98.3
== END 2020-11-28 10:03 | disposition home or self-care (01) ==
LOC: EC 07:23
DX: L02.512 Cutaneous abscess of left hand (principal); E87.2 Acidosis; J45.909 Unspecified asthma, uncomplicated; G40.909 Epilepsy, unspecified, not intractable, without status epilepticus; F10.239 Alcohol dependence with withdrawal, unspecified; Z79.51 Long term (current) use of inhaled steroids; Z79.899 Other long term (current) drug therapy; Z79.82 Long term (current) use of aspirin; Z87.891 Personal history of nicotine dependence; Z88.8 Allergy status to other drugs, medicaments and biological substances; Z88.5 Allergy status to narcotic agent; Z91.040 Latex allergy status
CPT/HCPCS: 36415; 80053; 83605; 85025; 87070; 87205; 99283; 96365; 96375; 96368; 96361; J2543; J2001; J1170; 87077; 87186

== ENCOUNTER → 2020-12-14 | Outpatient (CLI) | payer OTHER | END | disposition home or self-care (01) | LOC: LABWHC1 15:42 | PROVIDERS: ATTEND Family Medicine | DX: Z20.822 Contact with and (suspected) exposure to COVID-19 (principal) | CPT/HCPCS: U0003; C9803 ==